=== PATIENT | female | born 1940 | race Caucasian/White ===

== ENCOUNTER 2016-06-10 12:05 | Emergency (ER) | payer MEDICARE, MEDICAID ==
[~2016-06-10] VITALS: Ht 158.8 cm; Wt 72.0 kg
[2016-06-10 12:07] VITALS: BP 134/76; PULSE 69; RESP 15; O2SAT 97
--- NOTE | 2016-06-10 12:17 | ED.REPORT ---
HPI-Extremity Problem Upper Date of Service Jun 10, 2016 ED Provider: Redd Steen Patient is a 75 year old female on Plavix who presents to the ED after being referred by urgent care for a large bruise on her R forearm onset this morning. She is concerned about the discoloration but denies any pain in her arm. She denies chest pain, SOB, pain, or any other symptoms. Nursing Notes Stated Complaint: RIGHT ARM BRUISED Chief Complaint: Extremity Trauma Nursing Notes Reviewed: Yes Allergies: Coded Allergies: No Known Allergies (Unverified , 06/10/16) General Time Seen by MD: 12:17 Chief Complaint Arm injury right Hx Obtained From: Patient Arrived By: Walk-in Similar Sx Previous: No Past Medical History Past Medical History AAA MIx2 Past Surgical History Stent placement Smoking History Current Every Day Smoker Ambulatory Status Independent Review of Systems Musculoskeletal: Denies: Extremity pain Skin: Reports Bruising (R arm) Complete sys rev & neg: except as marked. Respiratory: Denies: Shortness of breath Cardiovascular: Denies: Chest pain Physical Exam Initial Vital Signs Vital Signs (First) Date Time Temp Pulse Resp B/P Pulse Ox O2 Delivery O2 Flow Rate FiO2 06/10/16 12:07 35.8 69 15 134/76 97 Room Air Initial VS: Reviewed Head / Eyes: Atraumatic, Normocephalic Respiratory: No respiratory distress Lower Extremities: No swelling Neurologic: Alert, Oriented, Nonfocal Psychiatric: Mood/affect normal, Behavior normal, Normal thought content General/Constitutional: Awake, Alert, Well developed Cardiovascular: Cap refill not delayed, Peripheral circulation NL Skin: Warm, Dry Discoloration over R wrist and ulna. Interpretation & Diagnostics Lab Results Interpretation Result Diagram: 06/10/16 1240 Test 06/10/16 12:40 06/10/16 12:45 White Blood Count 8.1th/mm3 (3.8-10.1) Red Blood Count 4.39mil/mm3 (3.90-5.20) Hemoglobin 12.5g/dL (12.0-15.6) Hematocrit 37.1% (35.0-46.0) Mean Corpuscular Volume 84.5fL (81-100) Mean Corpuscular Hemoglobin 28.5pg (27.0-35.0) Mean Corpuscular Hemoglobin Concent 33.7% (32.0-37.0) Red Cell Distribution Width 15.6% (12.3-15.4) Platelet Count 159bil/L (150-400) Neutrophils (%) (Auto) 69.3% (40-74) Lymphocytes (%) (Auto) 22.6% (14-46) Monocytes (%) (Auto) 6.8% (4-12) Eosinophils (%) (Auto) 0.9% (0-5) Basophils (%) (Auto) 0.2% (0-3) Prothrombin Time 10.2sec (8.1-12.5) Prothromb Time International Ratio 0.95ratio Hold Leos Top Tube Received (Received) Re-Eval/Medical Decision Med Decision/Clinical Course The patient has very mild bruising on the volar aspect of the right forearm with no injury that she can recall. She has normal distal peripheral neurovascular status of that extremity. Rest for examination is unremarkable. CBC is normal, INR is pending but I do not expect it to be abnormal given the fact that she does not take any anticoagulant of that nature. I recommend outpatient follow-up as needed. I encouraged her to quit smoking. I do not suspect a dangerous vascular condition. Re-Evaluation/Progress : Time of Eval: 13:04 Re-Evaluation/Progress Note: Discussed lab results and plan for discharge. Patient understands and agrees with plan. All questions addressed at this time. Counseled Regarding: Diagnosis, Lab results, Need for follow-up, When/why to return to ED Discharge & Departure Impression: Primary Impression: Superficial bruising of upper limb Encounter type: initial encounter Laterality: right Qualified Code: S40.021A - Contusion of right upper arm, initial encounter Disposition: Home Patient Instructions: How to Stop Smoking (GEN) Additional Instructions: No dangerous cause for your bruising on the right arm is suspected at this time. Of course I recommended that you quit smoking. Follow-up with your doctor in a few days if things are getting worse. Referrals: Parul Garay (PCP) Scribe Attestation Portions of this note were transcribed by Jg Palafox. I, Dr. Steen personally performed the history, physical exam and medical decision-making; I reviewed and confirmed the accuracy of the information in the transcribed note. Signed by: Jg Palafox 06/10/16, 1310 copies to: Parul Garay Kirk H MD Jun 10, 2016 12:17 JG PALAFOX Jun 10, 2016 12:27
[2016-06-10 12:49] LABS: BASOPHILS % (AUTO) 0.2 % (0-3); EOSINOPHILS % (AUTO) 0.9 % (0-5); MONOCYTES % (AUTO) 6.8 % (4-12); Mean Corpuscular Hemoglobin 28.5 pg (27.0-35.0); Mean Corpuscular Volume 84.5 fL (81-100); NEUTROPHILS % (AUTO) 69.3 % (40-74); Platelet Count 159 bil/L (150-400)
[2016-06-10 13:02] LABS: INR 0.95 ratio
[2016-06-10 13:14] VITALS: PULSE 70; RESP 16; O2SAT 98
== END 2016-06-10 13:15 | disposition home or self-care (01) ==
LOC: SED 12:05
DX: S50.11XA Contusion of right forearm, initial encounter (principal); X58.XXXA Exposure to other specified factors, initial encounter; Y92.9 Unspecified place or not applicable; Y93.9 Activity, unspecified; Y99.9 Unspecified external cause status; I25.2 Old myocardial infarction; F17.200 Nicotine dependence, unspecified, uncomplicated; Z95.818 Presence of other cardiac implants and grafts; Z86.79 Personal history of other diseases of the circulatory system; Z79.02 Long term (current) use of antithrombotics/antiplatelets
CPT/HCPCS: 36415; 85025; 85610; 99283; G0463